=== PATIENT | female | born 1960 | race Caucasian/White ===

== ENCOUNTER 2018-08-18 19:16 | Emergency (ER) | payer OTHER ==
[2018-08-18] MEDS: NORCO 5/325MG TABLET (BULK FOR ED) PO (20:45)
== END 2018-08-18 21:26 | disposition home or self-care (01) ==
LOC: M ED 19:16
DX: S42.001A Fracture of unspecified part of right clavicle, initial encounter for closed fracture (principal); V18.4XXA Pedal cycle driver injured in noncollision transport accident in traffic accident, initial encounter; Y92.1 Institutional (nonprivate) residence as the place of occurrence of the external cause
CPT/HCPCS: 73000